=== PATIENT | female | born 1965 | race Caucasian/White ===

== ENCOUNTER 2017-02-20 20:55 | Emergency (ER) | payer OTHER ==
[~2017-02-20] VITALS: Ht 154.9 cm; Wt 105.2 kg
[~2017-02-20 20:55] MED LIST: CLON0.1T42 PO; FLUO-387 PO; INSU10SU6 SUBQ; INSU10SU8 SUBQ; METF500T64 PO; OMEP20EC6 PO
[2017-02-20 21:01] VITALS: BP 143/85
--- NOTE | 2017-02-20 22:18 | NUR ---
PT TAKEN TO BED 3
--- NOTE | 2017-02-20 22:20 | NUR ---
PT PRESENTS TO ED WITH C/O NON-RADIATING CP X1 MONTH. STATES SHE VISITED URGENT CARE WHO SENT HER HERE BECAUSE HER "HEART WAS BEATING TOO FAST". HX DM - BS 206 AT THIS TIME. PT STATES SHE FEELS NAUSEATED TODAY. NO SOB NOTED AT THIS TIME, BREATHING EVEN AND UNALBORED. PAIN SCALE 5/10. ERMD AWARE.
--- NOTE | 2017-02-20 22:42 | NUR ---
Dr. Coombs evaluating patient at bedside.
[2017-02-20] MEDS ORDERED: METOCLOPRAMIDE 10 MG/2 ML INJ VIAL IVP ONE (22:50)
[2017-02-20] MEDS ORDERED: NACL 0.9% 1,000 ML IV ONE (22:50)
--- NOTE | 2017-02-20 22:56 | NUR ---
X-Ray at bedside.
--- NOTE | 2017-02-20 23:00 | NUR ---
PT TACHYCARDIC BETWEEN [address] DELA CRUZ AWARE.
[2017-02-20 23:28] LABS: HEMATOCRIT 43.2 % (36-48); HEMOGLOBIN 14.4 g/dL (12.0-16.0); MEAN CORPUSCULAR HEMOGLOBIN 27 pg (27-31); MEAN CORPUSCULAR HGB CONC 33 g/dL (33-37); MEAN CORPUSCULAR VOLUME 82 fL (80-94); PLATELET COUNT (AUTO) 266 K/uL (140-450); RED BLOOD CELL COUNT(AUTO) 5.25 MIL/uL (4.20-5.40); RED CELL DISTRIBUTION WIDTH 12.5 % (11.6-13.7); WHITE BLOOD COUNT (AUTO) 10.2 K/uL (4.8-10.8)
[2017-02-20 23:49] LABS: INR 1.1 (0.8-1.2); PARTIAL THROMBOPLASTIN TIME 28.8 secs (22-35.6); PROTHROMBIN TIME 10.4 secs (10.8-13.4)
[2017-02-20 23:50] LABS: ALBUMIN 3.4 g/dL (3.4-5.0); ANION GAP 11.2 (8-16); CALCIUM 8.6 mg/dL (8.5-10.1); CARBON DIOXIDE 29.5 mmol/L (21-32); CREATININE 0.8 mg/dL (0.6-1.3); POTASSIUM 3.7 mmol/L (3.5-5.1); TOTAL BILIRUBIN 0.5 mg/dL (0.0-1.0); TOTAL PROTEIN, SERUM 7.2 g/dL (6.4-8.2)
[2017-02-20 23:55] LABS: BAND % (MANUAL) 17 % (0-8); NEUTROPHILS % (MANUAL) 68 (43-65)
[2017-02-20 23:56] LABS: LYMPHOCYTES % (MANUAL) 12 % (20-46); MONOCYTES % (MANUAL) 3 % (5-12)
--- NOTE | 2017-02-21 00:41 | NUR ---
URINE DIP STICK RESULT - GLUCOSE 250MG/DL, DR. DELA CRUZ AWARE.
[2017-02-21] MEDS ORDERED: NACL 0.9% 500 ML IV ONE ×2 (00:50→04:10)
[2017-02-21 00:58] LABS: APPEARANCE,URINE CLEAR (CLEAR); BILIRUBIN,URINE NEGATIVE (NEGATIVE); BLOOD, URINE NEGATIVE (NEGATIVE); COLOR,URINE YELLOW (YELLOW); LEUKOCYTE ESTERASE ,URINE NEGATIVE (NEGATIVE); NITRITE, URINE NEGATIVE (NEGATIVE); PROTEIN,URINE NEGATIVE (NEGATIVE); UGLUCOSE 1+ (NEGATIVE); UROBILINOGEN,URINE 0.2 EU/dL (0.2 - 1)
--- NOTE | 2017-02-21 01:20 | NUR ---
Margo DELA CRUZ REEVALUATING PT AT BEDSIDE
[2017-02-21 01:22] LABS: BACTERIA,URINE FEW /HPF (None Seen); RBC,URINE 0-5 (RARE) /HPF (0-5); SQUAMOUS EPITHELIAL CELL,UR 0-3 (FEW) /LPF (0-3 (FEW)); WBC,URINE 0-5 (RARE) /HPF (0-5); YEAST,URINE Few /HPF (None Seen)
--- NOTE | 2017-02-21 01:30 | NUR ---
PT STILL TACHYCARDIC. DR. DELA CRUZ AWARE.
[2017-02-21] MEDS ORDERED: NACL 0.9% 1,000 ML IV ONE ×2 (01:40→04:15)
--- NOTE | 2017-02-21 02:31 | NUR ---
PT RETURN FROM CT
--- NOTE | 2017-02-21 03:48 | NUR ---
DR. DELA CRUZ AT BEDSIDE REEVALUATING PT.
[2017-02-21] MEDS ORDERED: PIPERACILLIN/TAZOBACTAM 3.375 GM in DEXTROSE 5% 50 ML IV ONE (04:05)
--- NOTE | 2017-02-21 04:15 | NUR ---
PT HAD X3 WATERY/LOOSE BROWNISH STOOL. DR. DELA CRUZ AWARE. Addendum: 02/21/17 at 0435 by SHANNEN PT STATED SHE STARTED TO HAVE BMX3 WATERY/LOOSE STOOL AFTER THE CONTRAST.
[2017-02-21] MEDS ORDERED: PIPERACILLIN/TAZOBACTAM 3.375 GM VIAL IV ONE (04:16)
[2017-02-21] MEDS ORDERED: GABA300C PO (04:27)
[2017-02-21] MEDS ORDERED: IBUP-2213 PO (04:27)
[2017-02-21] MEDS ORDERED: LANTUS SUBQ (04:27)
[2017-02-21] MEDS ORDERED: NOVN SUBQ (04:27)
--- NOTE | 2017-02-21 04:36 | NUR ---
[employer] ACCOUNTING MANAGER AT BEDSIDE.
--- NOTE | 2017-02-21 05:53 | NUR ---
PT WENT TO THE RESTROOM FOR BM AGAIN WATERY STOOL, MODERATE AMOUNT.
--- NOTE | 2017-02-21 06:20 | NUR ---
IV removed, catheter intact and site benign. Applied folded 4x4 gauze and tape to stop bleeding.
[2017-02-21 06:26] VITALS: BP 128/73
--- NOTE | 2017-02-21 06:26 | NUR ---
Patient discharged with v/s stable. Written and verbal after care instructions given and explained. Patient alert, oriented and verbalized understanding of instructions. Ambulatory with steady gait. All questions addressed prior to discharge. ID band removed. Patient advised to follow up with PMD. Opportunity to ask questions provided and answered.
== END 2017-02-21 06:26 | disposition home or self-care (01) ==
LOC: MED 20:55
DX: B34.9 Viral infection, unspecified (principal); R00.0 Tachycardia, unspecified; E11.9 Type 2 diabetes mellitus without complications; Z79.4 Long term (current) use of insulin; Z79.899 Other long term (current) drug therapy
CPT/HCPCS: 36415; 71010; 71275; 80053; 81001; 81025; 82948; 83605; 83880; 84484; 85025; 85379; 85610; 85730; 87040; 87086; 93005; 96361; 96365; 96375; 99285; J2543; J2765; J7030; J7060; Q9967